=== PATIENT | female | born 1945 | race Hispanic/Latino ===

== ENCOUNTER → 2021-02-24 | Outpatient (CLI) | payer OTHER ==
[~2021-02-24] MED LIST: ALBU8.5H8 IH; AMLO2.5T4 PO; CREON12 PO; HYDR-2132 PO; LEVO75TA4 PO; LOSA1TAB37 PO; MONT10TA32 PO; NASOCORT NASAL; OM-31CAP8 PO; OMEP40CA13 PO; SUCR1TAB2 PO; UBID100C10 PO; VIT COMPLEX PO
== END | disposition home or self-care (01) ==
LOC: RAH 14:15
PROVIDERS: ATTEND Orthopaedic Surgery
DX: M17.11 Unilateral primary osteoarthritis, right knee (principal); M23.91 Unspecified internal derangement of right knee; R60.0 Localized edema
CPT/HCPCS: 73721